=== PATIENT | male | born 1940 | race Caucasian/White ===

== ENCOUNTER → 2017-02-04 | Outpatient (CLI) | payer MEDICARE ==
[~2017-02-04] MED LIST: ACET-2321 PO; APIX5TAB PO; ASPI-914 PO; CITA20TA17 PO; DABI150C PO; DOXA4TAB3 PO; FISH1CAP2 PO; FURO40TA5 PO; GABA-338 PO; GEMF600T3 PO; MINO100C43 PO; MULT-1175 PO; NEBI5TAB8 PO; POTA20TA87 PO; SIMV20TA6 PO
== END ==
LOC: LABN 23:59
PROVIDERS: ATTEND Family Medicine
DX: R73.03 Prediabetes (principal); R73.09 Other abnormal glucose
CPT/HCPCS: 83036

== ENCOUNTER → 2017-02-11 | Outpatient (CLI) | payer MEDICARE ==
[~2017-02-11] MED LIST changes: -ACET-2321 PO; -DABI150C PO; -MINO100C43 PO
== END ==
LOC: LAB 10:56
PROVIDERS: ATTEND Urology
DX: N40.1 Benign prostatic hyperplasia with lower urinary tract symptoms (principal); R36.1 Hematospermia
CPT/HCPCS: 36415; 84153

== ENCOUNTER 2017-02-18 05:59 | Day surgery (SDC) | payer MEDICARE ==
--- NOTE | 2017-02-05 16:08 | NUR ---
IMPLANTABLE DEVICE Medtronic Dual Chamber Pacemaker in Left upper chest Implanted [place] Panchal [place] [facility] [place]14[place] Model# [id number]# [id number]
--- NOTE | 2017-02-05 16:18 | NUR ---
PMH, allergies, meds reviewed and documented. Preop and DOS instructions given including written instruction by Dr Mcrae when to stop Eliquis, and for patient to take Bystolic the am of surgery.
[~2017-02-18] VITALS: Ht 177.8 cm; Wt 116.3 kg
--- OUTSIDE RECORDS SUMMARY | 2017-02-18 06:03 | XMS REPORT | Continuity of Care Document ---
Author Author [facility] Organization [facility] Address Unknown Phone Unavailable Care Team Providers Care Intercell Connector Placer Name Role Phone JIM MURCIA MD Primary Care Physician [phone] Insurance Providers Guarantor Yohana Downey Address [address] [address] Email DENIED/NO TO PT PORT Payer [employer]humana Gold H[employer] Policy Number [id number] Subscriber's Name Yohana Downey Relationship 20 Self Advance Directives Directive Response Recorded Date/Time Ordered Resuscitation Status Full Code 06/13/16 4:39pm Resuscitation Documents on File No 06/13/16 4:48pm DPOA for Healthcare Only No 06/13/16 4:48pm Living Will No 06/13/16 4:48pm Problems Active Problems Medical Problem Onset Date Status Aortic ectasia Unknown Chronic Bradycardia Unknown Resolved Chronic obstructive pulmonary disease Unknown Chronic Mixed hyperlipidemia Unknown Chronic Presence of permanent cardiac pacemaker Unknown Typical atrial flutter Unknown Chronic Medications Current Home Medications Medication Dose Units Route Directions Days Qty Instructions Start Date Acetaminophen (Tylenol) 325 Mg Tablet 650 Mg Oral Every 4 Hours as needed for Pain 30 Days 360 Tablet 06/15/16 Citalopram Hydrobromide (Celexa) 20 Mg Tablet 1 Tab Oral Daily Dabigatran Etexilate Mesylate (Pradaxa) 150 Mg Capsule 1 Cap Oral Twice A Day TAKE WITH FULL GLASS OF WATER. Do not break, chew, open cap. Doxazosin Mesylate 4 Mg Tablet 4 Tab Oral Daily 05/30/16 Gemfibrozil 600 Mg Tablet 1 Tab Oral Ac 30 Minutes Twice A Day Minocycline Hcl (Minocin) 100 Mg Capsule 100 Mg Oral Twice A Day 7 Days 14 Capsule 06/15/16 Multivitamin (Multi-Vitamin Daily) 1 Each Tablet 1 Tab Oral Daily 05/05/15 Simvastatin 20 Mg Tablet 20 Mg Oral Bedtime Take 1 tablet, by mouth , 1 time a day (at BEDTIME). 05/05/15 Past Home Medications Medication Directions Ordered Status Doxazosin Mesylate 4 Mg Tablet, 4 Mg Oral Daily 01/24/10 Discontinued Dronedarone Hcl (Multaq) 400 Mg Tablet, 400 Mg Oral Twice A Day 05/31/16 Discontinued Simvastatin 40 Mg Tablet, 40 Mg Oral Daily 01/24/10 Discontinued Social History Social History Problem Response Recorded Date/Time Onset Date Status Reason for Hospitalization symptomatic bradycardia; implantation of permanent pacemaker 06/15/2016 10:02am Not Applicable Not Applicable Hx Substance Use No 09/28/2015 9:02am Not Applicable Not Applicable Hx Alcohol Use No 09/28/2015 9:02am Not Applicable Not Applicable Has the pt used tobacco in the last 12 months No 06/13/2016 4:50pm Not Applicable Not Applicable Query Response Start Date Stop Date Smoking Status Former smoker Hospital Discharge Instructions Instructions: Care Instructions: Reason for Hospitalization: symptomatic bradycardia; implantation of permanent pacemaker I was in the hospital because (patient own words): took ekg and it had no marsh so said I was going into the hospital Discharge Diet: Resume heart healthy diet Discharge Activity: Not to raise left arm above shoulder height for 3 weeks. No lifting, tugging, pulling or pushing more than 10 lbs for 3 weeks. No driving for 3 weeks. Wear sling on left arm for 48 hours total then only at night for 3 weeks. Follow Up Appointments: Follow up with Dr. Tomas on: 06/21/16 at 1010 Pending Lab / Results: No Pending Lab Patient Instructions: New prescriptions: Minocycline 100mg twice a day for 1 week. Stop Multaq Do NOT take Pradaxa until 06/16/16 then restart this med twice a day as before the permanent pacemaker insertion Wound/Incision Care: Keep site clean and dry. No tub baths or swimming for 3 week. You may shower with water hitting your back -- NOT directly onto incision for 3 weeks. Notify Physician If: Site is bleeding, abnormal drainage, increased pain or fever of 101.5 or more. Condition at time of discharge: Good Plan of Care Discharge Date 06/15/16 1:52pm Disposition 01 DISCHARGED HOME, SELF-CARE Instructions/Education Provided [facility] [place] [facility] Pacemaker Implantation DI for Bradycardia Prescriptions See Medication Section Care Plan and Goals See Discharge Instructions Section Functional Status Query Response Date Recorded Mobility Status Ambulatory June 15, 2016 10:02am Assistive Devices None June 15, 2016 10:02am Activity Limitations None June 15, 2016 10:02am Feeding Ability Independent June 15, 2016 10:02am Toileting Ability Independent June 15, 2016 10:02am Grooming Ability Independent June 15, 2016 10:02am Dressing Ability Independent June 15, 2016 10:02am Driving Ability Independent June 15, 2016 10:02am Housework Ability Independent June 15, 2016 10:02am Meal Preparation Ability Independent June 15, 2016 10:02am Stair Climbing Ability Independent June 15, 2016 10:02am Ability to complete ADL's impeded by No change June 15, 2016 10:02am Cognitive/Perceptual Impairments Impaired vision Impaired hearing June 15, 2016 10:02am Visual Assistive Devices Glasses June 13, 2016 6:08pm Allergies, Adverse Reactions, Alerts No known allergies. Immunizations Immunization Event Date Type Not Given Reason Dose Number Lot Number Carpentry Foreman VIS Given pneumococcal polysaccharide PPV23 05/31/16 Administered [id number] [employer] 07/26/09 Query Response on File Recorded Date/Time Hx Influenza Vaccination No 06/13/16 4:50pm Hx Pneumococcal Vaccination Y 10/201506/13/16 4:50pm Hx Influenza Vaccination No 06/13/16 4:50pm Vital Signs Acute Vital Signs Vital Response Date/Time Temperature (Fahrenheit) 98.6 deg F (96.8 - 99.1) 06/15/2016 8:06am Temperature (Calculated Celsius) 37.04345 degrees C (36.0 - 37.3) 06/15/2016 8:06am Temperature Source Oral 06/14/2016 11:46pm Pulse Rate (adult) 61 bpm (60 - 100) 06/15/2016 8:06am Respiratory Rate 20 breaths/min (10 - 20) 06/15/2016 8:06am O2 Sat by Pulse Oximetry 89 % (90 - 100) 06/15/2016 8:06am Oxygen Delivery Method Room Air 06/14/2016 11:46pm Oxygen Delivery Method Room Air 06/15/2016 8:06am Oxygen Flow Rate 2.00 L/min 06/14/2016 5:11pm Blood Pressure 132/80 mm Hg 06/15/2016 8:06am Blood Pressure Source Automatic Cuff 06/15/2016 8:06am Height (Feet) 5 feet 06/15/2016 9:42am Height (Inches) 10.00 inches 06/15/2016 9:42am Weight (Kilograms) 109.500 kg 06/15/2016 7:46am Body Mass Index (BMI) 35.2 06/13/2016 4:54pm Results Laboratory Results Test Name Result Units Flags Reference Collection Date/Time Result Date/ Time Comments White Blood Count 8.1 T/MM3 4.5-11.0 06/13/2016 4:55pm 06/13/2016 5: 07pm Red Blood Count 4.58 M/MM3 4.50-5.90 06/13/2016 4:55pm 06/13/2016 5: 07pm Hemoglobin 14.7 GM/DL 13.5-17.5 06/13/2016 4:55pm 06/13/2016 5:07pm Hematocrit 44.1 % 41-53 06/13/2016 4:55pm 06/13/2016 5:07pm Mean Corpuscular Volume 96.3 UM3 80-100 06/13/2016 4:55pm 06/13/2016 5: 07pm Mean Corpuscular Hemoglobin 32.1 UUG 26-34 06/13/2016 4:55pm 2015 5:07pm Mean Corpuscular Hemoglobin Concent 33.3 GM/DL 31-37 06/13/2016 4:55pm 06/13/2016 5:07pm RDW Standard Deviation 45.7 FL 36.9-50.2 06/13/2016 4:55pm 06/13/2016 5 :07pm Platelet Count 216 T/MM3 130-400 06/13/2016 4:55pm 06/13/2016 5:07pm Mean Platelet Volume 10.2 UM3 9.4-12.4 06/13/2016 4:55pm 06/13/2016 5: 07pm Neutrophils (%) (Auto) 56.7 % 33-66 06/13/2016 4:55pm 06/13/2016 5: 07pm Lymphocytes (%) (Auto) 32.8 % 23-45 06/13/2016 4:55pm 06/13/2016 5: 07pm Monocytes (%) (Auto) 8.1 % 0-9.0 06/13/2016 4:55pm 06/13/2016 5:07pm Eosinophils (%) (Auto) 2.0 % 0-4 06/13/2016 4:55pm 06/13/2016 5:07pm Basophils (%) (Auto) 0.2 % 0-2 06/13/2016 4:55pm 06/13/2016 5:07pm Immature Granulocyte % (Auto) 0.2 % 0.0-0.5 06/13/2016 4:55pm 2015 5:07pm Absolute Neutrophils (auto) 4.6 T/MM3 1.8-7.7 06/13/2016 4:55pm 2015 5:07pm Absolute Lymphocytes (auto) 2.7 T/MM3 1-4.8 06/13/2016 4:55pm 2015 5:07pm Absolute Monocytes (auto) 0.7 T/MM3 0-0.8 06/13/2016 4:55pm 06/13/2016 5:07pm Absolute Eosinophils (auto) 0.2 T/MM3 0-0.5 06/13/2016 4:55pm 2015 5:07pm Absolute Basophils (auto) 0.0 T/MM3 0-0.2 06/13/2016 4:55pm 06/13/2016 5:07pm Absolute Immature Granulocyte (auto 0.02 T/MM3 0.00-0.03 06/13/2016 4: 55pm 06/13/2016 5:07pm Prothromb Time International Ratio 1.24 H 0.99-1.21 06/13/2016 4:55pm 06/13/2016 5:14pm THERAPUTIC RANGE=2.00-3.00 FOR ANTI-THROMBOSIS THERAPUTIC RANGE=2.50-3.50 FOR IMPLANTED VALVE Activated Partial Thromboplast Time 43.9 SEC H 24-36 06/14/2016 9:04am 06/14/2016 9:17am Icterus Index < 2 0-7 06/13/2016 4:55pm 06/13/2016 5:16pm Chemistry Specimen Hemolysis < 15 0-25 06/13/2016 4:55pm 06/13/2016 5 :16pm 0-25: Specimen Exhibited No Hemolysis. Turbidity 25 H 0-20 06/13/2016 4:55pm 06/13/2016 5:16pm 0-21: Turbidity not present. 22-999: Turbidity present - Gross turbidity can falsely decrease Lipase and Triglycerides. Sodium Level 145 MEQ/L H 134-144 06/13/2016 4:55pm 06/13/2016 5:16pm Potassium Level 4.2 MEQ/L 3.6-5 06/13/2016 4:55pm 06/13/2016 5:16pm Chloride Level 108 MEQ/L H 98-107 06/13/2016 4:55pm 06/13/2016 5:16pm Carbon Dioxide Level 26 MEQ/L 22-30 06/13/2016 4:55pm 06/13/2016 5: 16pm Anion Gap 11 MEQ/L 5-15 06/13/2016 4:55pm 06/13/2016 5:16pm Blood Urea Nitrogen 23.0 MG/DL H 9-20 06/13/2016 4:55pm 06/13/2016 5: 16pm Creatinine 0.9 MG/DL 0.8-1.5 06/13/2016 4:55pm 06/13/2016 5:16pm BUN/Creatinine Ratio 26 RATIO 6-26 06/13/2016 4:55pm 06/13/2016 5:16pm Glomerular Filtration Rate Calc 83 06/13/2016 4:55pm 06/13/2016 5: 16pm Glucose Level 96 MG/DL 75-110 06/13/2016 4:55pm 06/13/2016 5:16pm Calculated Osmolality 283 MOSM/KG H 261-280 06/13/2016 4:55pm 2015 5:16pm Calcium Level 9.8 MG/DL 8.4-10.2 06/13/2016 4:55pm 06/13/2016 5:16pm Total Bilirubin 0.40 MG/DL 0.20-1.30 06/13/2016 4:55pm 06/13/2016 5: 16pm Alkaline Phosphatase 62 U/L 38-126 06/13/2016 4:55pm 06/13/2016 5:16pm Total Protein 8.3 G/DL H 6.3-8.2 06/13/2016 4:55pm 06/13/2016 5:16pm Albumin 4.7 G/DL 3.5-5.0 06/13/2016 4:55pm 06/13/2016 5:16pm Globulin 3.6 G/DL 2.4-3.6 06/13/2016 4:55pm 06/13/2016 5:16pm Albumin/Globulin Ratio 1.3 RATIO 1.1-2.2 06/13/2016 4:55pm 06/13/2016 5 :16pm Aspartate Amino Transf (AST/SGOT) 21 U/L 17-59 06/13/2016 4:55pm 2015 5:16pm Alanine Aminotransferase (ALT/SGPT) 15 U/L L 21-72 06/13/2016 4:55pm 5:16pm Cholesterol Level 102 MG/DL L 132-199 06/14/2016 4:25am 06/14/2016 5: 01am Triglycerides Level 74 MG/DL 40-160 06/14/2016 4:25am 06/14/2016 5: 01am HDL Cholesterol Direct 30 MG/DL L 40-60 06/14/2016 4:25am 06/14/2016 5: 01am LDL Cholesterol, Calculated 57.2 L 66-159 06/14/2016 4:25am 2015 5:01am VLDL Cholesterol 14.8 MG/DL 0-28 06/14/2016 4:25am 06/14/2016 5:01am Cholesterol/HDL Ratio 3.4 RATIO 0-5.0 06/14/2016 4:25am 06/14/2016 5: 01am Magnesium Level 2.4 MG/DL H 1.6-2.3 06/13/2016 4:55pm 06/13/2016 5:16pm Thyroid Stimulating Hormone (TSH) 1.65 MIU/L 0.47-4.68 06/13/2016 4: 55pm 06/13/2016 5:46pm Name: YOHANA DOWNEY Unit #: [id number] : 1940 Sex: M Admit Date: 06/14/16 Loc / Svc: SRG Discharge Date: DIAGNOSTIC IMAGING REPORT Report #: [id number] [facility] CHRISS Hanley INDICATION: ITS.REASON: post pacemaker insertion PROCEDURE: CHEST 2-VIEWS UPRIGHT (PA \\T\\ LAT) Encounter: Initial COMPARISON: June 14, 2016 FINDINGS: Lungs are stable in appearance. No pneumothorax or pleural effusion seen. Cardiomediastinal contours are stable. Left cardiac pacemaker leads appear unchanged in position without evidence of fracture. Impression: Stable appearance of the left pacemaker without pneumothorax. . Procedures Procedure Status Date Provider(s) PPSV23 VACC 2 YRS+ SUBQ/IM Completed 05/30/16 CARDIOVERSION ELECTRIC EXT Completed 05/30/16 BARBARA TOMAS MD ELECTROCARDIOGRAM TRACING Completed 05/30/16 [id number] ITEM OR SERVICE Completed 05/30/16 [id number] ITEM OR SERVICE Completed 05/30/16 [id number] ITEM OR SERVICE Completed 05/30/16 [id number] ITEM OR SERVICE Completed 05/30/16 [id number] ITEM OR SERVICE Completed 05/30/16 [id number]-[id number] ITEM OR SERVICE Completed 05/30/16 [id number] ITEM OR SERVICE Completed 05/30/16 [id number] ITEM OR SERVICE Completed 05/30/16 [id number] ITEM OR SERVICE Completed 05/30/16 [id number] ITEM OR SERVICE Completed 05/30/16 [id number] OF PNEUMOCOCCAL VACCINE Completed 05/30/16 761550"HOSPITAL OBSERVATION SERVICE, PER HOUR" Completed 05/30/16 808786"HOSPITAL OBSERVATION SERVICE, PER HOUR" Completed 05/30/16 607943"HOSPITAL OBSERVATION SERVICE, PER HOUR" Completed 05/30/16 [id number] ADMISSION OF PATIENT FOR HOSPITAL OBSERVATION C Completed 164116"INJECTION, MIDAZOLAM HYDROCHLORIDE, PER 1 MG" Completed 05/30/16 039587"INJECTION, FENTANYL CITRATE, 0.1 MG" Completed 05/30/16 Encounters Encounter Location Arrival/Admit Date Discharge/Depart Date Attending Provider Discharged Inpatient [facility] 06/14/16 1:54pm 06/15/16 1:52pm BARBARA TOMAS MD Discharged Inpatient (obs) [facility] 05/30/16 8:02am 05/31/16 6: 07pm BARBARA TOMAS MD
--- OUTSIDE RECORDS SUMMARY | 2017-02-18 06:03 | XMS REPORT | Referral Summary ---
Author Author [facility] Organization [facility] Address Unknown Phone Unavailable Care Team Providers Care Turn Down Man Name Role Phone Hernán Garcia Primary Care Physician [phone] Encounter [facility] [id number] Date(s): 10/17/16 - 10/17/16 [facility] [address] [place] [address] Discharge Disposition: 01-Home or Self Care Attending Physician: Noé Cuello MD Vital Signs No data available for this section Problem List No data available for this section Allergies, Adverse Reactions, Alerts No data available for this section Medications No data available for this section Results No data available for this section Immunizations No data available for this section Procedures No data available for this section Social History No data available for this section Assessment and Plan No data available for this section
[2017-02-18 06:05] VITALS: BP 153/78; PULSE 75; RESP 16; TEMP 97.7; O2SAT 94; Ht 177.8 cm; Wt 116.3 kg
[2017-02-18] MEDS ORDERED: LIDOCAINE VISCOUS 2% Oral Soln 15ml UD ONE (06:47)
[2017-02-18] MEDS ORDERED: LIDOCAINE 1% (10mg/ml) 2ml SDV INJ ONE (07:00)
[2017-02-18] MEDS ORDERED: LR 1,000 ML IV SCH (07:00)
--- NOTE | 2017-02-18 07:19 | ANESPREOP ---
Anesthesia Record Date and Time DATE: 02/18/17 TIME: 07:15 Pre-Op Diagnosis melena Proposed Surgical Procedure COLONOSCOPY, EGD Allergies: Coded Allergies: No Known Allergies (Verified , 02/18/17) Ht/Wt/BMI Height: 5 ' 10.00 " Weight: 116.300 kg BMI: 36.8 kg/m2 Vital Signs Date Time Temp Pulse Resp B/P Pulse Ox O2 Delivery O2 Flow Rate FiO2 02/18/17 06:05 97.7 75 16 153/78 94 Room Air Medications Inpatient Medications Current Medications Medications (Trade) Dose Ordered Sig/Kilo Start Time Stop Time Status Last Admin Dose Admin Lactated Ringer's (Lactated Ringers) 1,000 ml @ 50 mls/hr Q20H 02/18/17 07:00 02/18/17 06:31 50 MLS/HR Apixaban (Eliquis) 5 Mg Tablet, 1 TAB PO BID, (Reported) Last Taken: on 02/06/17 Aspirin *EC* (Low Dose Aspirin EC) 81 Mg Tablet.dr , 1 TAB PO DAILY, (Reported) Last Taken: on 02/06/17 Citalopram Hydrobromide (Celexa) 20 Mg Tablet, 1 TAB PO DAILY, (Reported) Last Taken: on 02/15/17 0800 Doxazosin Mesylate (Doxazosin Mesylate) 4 Mg Tablet, 4 TAB PO HS, (Reported) Last Taken: on 02/15/17 2100 Furosemide (Furosemide) 40 Mg Tablet, 1 TAB PO DAILY, (Reported) Last Taken: on 02/15/17 0800 Gabapentin (Gabapentin) 300 Mg Capsule, 1 CAP PO HS, (Reported) Last Taken: on 02/15/17 2100 Gemfibrozil (Gemfibrozil) 600 Mg Tablet, 1 TAB PO [id number], (Reported) Last Taken: on 02/15/17 0822 Multivitamin (Multi-Vitamin Daily) 1 Each Tablet, 1 TAB PO DAILY, (Reported) Last Taken: on 02/15/17 0800 Nebivolol HCl (Bystolic) 5 Mg Tablet, 1 TAB PO DAILY, (Reported) Last Taken: on 02/18/17 0435 Potassium Chloride (Potassium Chloride) 20 Meq Tab.er.prt, 1 TAB PO DAILY, (Reported) Last Taken: on 02/15/17 0800 Simvastatin (Simvastatin) 20 Mg Tablet, 20 MG PO HS, (Reported) Take 1 tablet, by mouth, 1 time a day (at BEDTIME). Last Taken: on 02/15/17 2100 Currently on Beta Conor: Yes Beta Conor Last Taken: KAYLAH @ 0435 02/18/17 Medical/Surgical History Anesthesia PMH: Reports: *Dyspnea (ON EXERTION), *Hypertension, Arthritis (BACK ), COPD, Sleep Apnea (C-PAP IN ROOM ), Denies: *Angina, *Diabetes, *RI, Anesthesia Reactions (NO AIRWAY ISSUES), Asthma, Blood Transfusion Reac, CHF, CVA/Stroke/TIA, Cancer, Clotting Problems, Deep Vein Thrombosis, Glaucoma, Hepatitis, Hiatal Hernia, Malignant Hyperthermia, Pneumonia, Reflux, Renal Disease, Seizures, Thyroid Disease, Tuberculosis Smoking Status: Former smoker (quit 1996) # of Packs per Day: 1 # of Years: 35 Use Chewing Tobacco?: No Second Hand Exposure: No Substance Use Type: does not use Alcohol Intake: other (occas) Past Surgical History Orthopedic Surgeries: Yes - TENDON RELEASE RT FOOT; Abdominal Surgeries: Yes - RT ING HERNIA; OPEN DAVIS Genitourinary Surgeries: Yes - groin Cardiac Surgeries: Yes - PACEMAKER Endocrine Surgeries: No Reproductive Surgeries: Yes - VASECTOMY, CIRCUMCISION Neurological Surgeries: Yes - BACK X2 (SECOND SURGERY WAS RELATED TO INFECTION FROM 1ST SURG) Ear Surgeries: No Nose Surgeries: No Throat Surgeries: No Other Surgeries: Yes - CATARACT; EYE MUSCLE SURG; COLONOSCOPY; LT NECK EXPLORATION Anesthesia Adverse Reactions: FOUND none Family Hx of Anesthesia Advers: none Hx of Motion Sickness: No Pertinent Findings EKG Rhythm: Atrial Fibrillation, Paced Physical Exam Respiratory: Bilat breath sounds equal, Lungs clear Cardiovascular: FOUND Regular rate, rhythm, FOUND No murmur Airway Assessment TMD: 2 Fingerbreadths Teeth: Upper Dentures, Lower Dentures ASA: 3 Plan Anesthesia Plan: TIVA Discussion Discussed risks/options/alternatives of anesthesia and questions answered. Patient consents. Nursing pain assessment noted. Present: Family Member Attestation Statement Prior to the delivery of any anesthetic medication, I examined the patient, developed the plan, obtained the patient's consent and discussed the risk and benefits of the procedure with the patient/guardian. AARON WOOD CRNA February 18, 2017 07:18
[2017-02-18] MEDS ORDERED: PROPOFOL 500mg 50 ML IV ONE (07:25)
[2017-02-18] MEDS ORDERED: LIDOCAINE (2%) 100 MG/5 ML PF SYRINGE IV ONE (07:25)
[2017-02-18] MEDS ORDERED: ALFENTANIL 500mcg/ml - 2ml INJECTION ONE (07:25)
[2017-02-18] MEDS ORDERED: PROPOFOL 200mg 20 ML IV ONE ×2 (08:44)
[2017-02-18 09:04] VITALS: BP 96/53; PULSE 59; RESP 16; TEMP 97.7; O2SAT 94
[2017-02-18 09:10] VITALS: BP 89/52; PULSE 63; RESP 15; O2SAT 90
--- NOTE | 2017-02-18 09:15 | GSPOSTPROC ---
Immediate Operative Note DATE: 02/18/17 TIME: 09:14 Postop Diagnosis: * Melena * Anticoagulation with Eliquis (on hold) * Normal EGD * Multiple colon polyps * Moderate internal hemorrhoids. Surgical Procedure: EGD, C-scope w/Polypectomy Surgeon: Clementina ASA: 3 LORENZO BERMUDEZ MD February 18, 2017 09:15
--- NOTE | 2017-02-18 09:18 | ANESPO ---
Post-Op Note Date 02/18/17 Time: 09:18 Status Pt Participated in Evaluation: Pt participated in person Vital Signs Date Time Temp Pulse Resp B/P Pulse Ox O2 Delivery O2 Flow Rate FiO2 02/18/17 09:10 63 15 89/52 90 Nasal Cannula 4.00 02/18/17 09:04 97.7 Respiratory Function: Airway patent, Regular respirations Cardiovascular Function: Regular pulse Telemetry Pattern: Paced Mental Status: Alert/oriented Pain Level Intensity: 0 Unable to Assess Pain Due To: Pt Sleeping Hydration: Taking po fluids Complications during Recovery None apparent Follow-Up Instructions Instructions Per Surgeon AARON WOOD CRNA February 18, 2017 09:18
[2017-02-18 09:20] VITALS: BP 124/56; PULSE 60; RESP 16; O2SAT 91
[2017-02-18 09:30] VITALS: BP 112/55; PULSE 54; RESP 15; O2SAT 93
--- NOTE | 2017-02-19 07:12 | OPNOTEF ---
DATE OF OPERATION 02/18/2017 SURGEON Ceferino Mcrae MD PREOPERATIVE DIAGNOSES 1. Melanotic stools. 2. Daily use of Eliquis (on hold). 3. Personal history of multiple adenomatous colon polyps. POSTOPERATIVE DIAGNOSES 1. Less than 0.5 cm sessile polyp of the cecum adjacent to the appendix. 2. 0.5 cm sessile polyp of the cecum. 3. 1.5 cm sessile polyp of the ascending colon. 4. 0.5 cm sessile polyp of the splenic flexure. 5. Moderate internal hemorrhoids. 6. Normal EGD. 7. Anticoagulation with Eliquis (on hold). 8. Melena. PROCEDURE 1. Esophagogastroduodenoscopy. 2. Colonoscopy with hot biopsy forceps polypectomy x 3 and piecemeal snare polypectomy of the ascending colon. ANESTHESIA TIVA ASA CLASS 3 INDICATIONS The patient is a 76-year-old male who was seen in the clinic and was noted to have melanotic stools. He has been taking Eliquis until it was stopped in the clinic. EGD and colonoscopy were recommended to investigate for a possible source for his melena. FINDINGS EGD was essentially normal and did not show any significant reason for melanotic stools. The colon revealed multiple polyps with two small polyps in the cecum and a larger polyp in the ascending colon that was removed in a piecemeal fashion. There was also a small polyp at the splenic flexure. At the sigmoid colon and rectum there were numerous less than 0.5 cm polyps that appeared grossly consistent with hyperplastic polyps and were not removed. The patient did have moderate internal hemorrhoids that did not show evidence of bleeding. DESCRIPTION OF PROCEDURE After informed consent was obtained the patient was taken to the endoscopy suite and placed in left lateral decubitus position. IV anesthesia was administered by the anesthesia team. A bite block was inserted followed by an Olympus video gastroscope. The gastroscope was advanced down into the esophagus under direct vision though there was difficulty getting the scope past the back of the tongue and the soft palate. Upon reaching the esophagus the scope was advanced to the second portion of the duodenum under direct vision. The scope was slowly withdrawn examining the mucosa circumferentially. No abnormalities in the duodenum were noted. In the stomach the scope was retroflexed to examine the cardiac and fundic portions of the stomach. The carbon dioxide insufflation was then evacuated and the scope was withdrawn into the esophagus. The Z-line was sharp. There was no evidence of distal esophagitis. The esophagus was inspected during scope removal after the carbon dioxide insufflation was evacuated from the stomach. The patient was repositioned for colonoscopy. He had received a MiraLAX/Dulcolax bowel prep the day prior. A digital rectal exam was performed and was normal. An Olympus video colonoscope with an AmplifEYE device was inserted and retroflexed to examine the distal rectum. The moderate internal hemorrhoids were noted. The scope was advanced to the cecum under direct vision. The cecum was identified by the appendiceal orifice and ileocecal valve. The bowel prep was good with minimal residual liquid contents of the colon that were able to be irrigated and evacuated via the colonoscope. Adjacent to the appendiceal orifice a small polyp was encountered. It was grasped with hot biopsy forceps and was removed. There was a larger polyp in the ascending colon. The base of this polyp was encircled with the polypectomy snare and the snare was tightened around the base of the polyp. Cautery was applied to try to divide the base of the polyp. The polyp was too large to fully remove in one piece with the polypectomy snare since there was concern that this process may lead to perforation. Because of this the snare was loosened and was used to encircle the distal half of the polyp which was cut using the polypectomy snare. This half of the polyp was then fragmented further with the snare so that it could be suctioned into the suction trap and sent to pathology. This led to multiple fragments of the polyp. The second half of the polyp was then excised with the polypectomy snare and it was also fragmented then retrieved via the suction trap. During work on the ascending colon polyp, another polyp was noted in the cecum and it was removed with hot biopsy forceps polypectomy technique. The polypectomy sites were inspected and were found to be hemostatic. The scope was slowly withdrawn examining the mucosa circumferentially. In the splenic flexure another small polyp was encountered and it was removed with hot biopsy forceps polypectomy technique. The scope was withdrawn to the distal sigmoid colon where small polyps were encountered but these were grossly consistent with hyperplastic polyps and since the patient had had 26 similar polyps removed that were all hyperplastic no additional polypectomies were performed. Upon reaching the rectum the carbon dioxide insufflation was evacuated and the scope was removed. RECOMMENDATIONS 1. Await pathology results to determine the necessary time interval for repeat colonoscopy. 2. Continue to hold Eliquis at least a week given the large piecemeal excision in the ascending colon. 3. Discuss restarting of Eliquis with Dr. Garcia. JESSICA
== END 2017-02-18 09:45 | disposition home or self-care (01) ==
LOC: NSC 05:59
PROVIDERS: ATTEND Surgery
DX: D12.0 Benign neoplasm of cecum (principal); D12.3 Benign neoplasm of transverse colon; K92.1 Melena; Z79.02 Long term (current) use of antithrombotics/antiplatelets; Z86.010 Personal history of colon polyps; K64.8 Other hemorrhoids; I48.91 Unspecified atrial fibrillation; F41.9 Anxiety disorder, unspecified; F32.9 Major depressive disorder, single episode, unspecified; E78.00 Pure hypercholesterolemia, unspecified; Z86.14 Personal history of Methicillin resistant Staphylococcus aureus infection; G47.30 Sleep apnea, unspecified; Z99.89 Dependence on other enabling machines and devices; Z79.82 Long term (current) use of aspirin; Z79.899 Other long term (current) drug therapy; Z87.891 Personal history of nicotine dependence
CPT/HCPCS: 43235; 45384; 45385; J2704; J7120; 88305